=== PATIENT | female | born 1970 | race Caucasian/White ===

== ENCOUNTER → 2016-08-08 | Outpatient (CLI) | payer OTHER ==
--- NOTE | 2016-08-09 01:39 | REP ---
Clinical: Acute on chronic pain. Technique: AP, lateral, bilateral oblique, and sunrise views of the right knee. Findings: Mild tricompartmental osteoarthritic degenerative changes include subtle spurring along the femoral condyles and tibial plateau as well as increase sclerosis to the tibial surface. Lateral and sunrise views demonstrate small osteophytes forming along the patellar margin. No evidence for acute or healed fracture. No effusion. Impression: Mild tricompartmental osteoarthritic degenerative changes. Signed by Morgan Mario MD 08/09/2016 01:30 A
== END ==
LOC: M WUC 12:26
PROVIDERS: ATTEND Internal Medicine Rheumatology
DX: M13.861 Other specified arthritis, right knee (principal)

== ENCOUNTER 2016-08-09 21:31 | Emergency (ER) | payer OTHER ==
[2016-08-09] MEDS ORDERED: ADACEL/BOOSTRIX VACCINE (DIPHTH/PERTUSS/ACELL/TETANUS)0.5ML SYR (90715) As Ordered ONE (22:34)
[2016-08-09] MEDS ORDERED: AUGMENTIN 875 MG TAB As Ordered ONE (22:34)
--- NOTE | 2016-08-09 23:18 | EDDOCDS ---
Nurse's Notes [facility] Name: Karla Moreau Age: 46 yrs Sex: Female : 1970 Arrival Date: 08/09/2016 Time: 21:31 Bed Triage 3 Private MD: Elyse Gaines Diagnosis: Bitten by dog-right cheek Presentation: 08/09 21:34 Presenting complaint: Patient states: "My dog bit me in the face". pt reports all of mb9 his shots are up to date. Adult Sepsis Screening: The patient does not have new or worsening altered mentation. Patient's respiratory rate is less than 22. Systolic blood pressure is greater than 100. Patient has a qSOFA score of 0- Negative Sepsis Screen. Suicide/Homicide risk assessment- the patient denies having any suicidal and/or homicidal ideations and does not present with any other emotional, behavioral or mental health complaints. Status: Patient is not a quick service technician or dependent. Transition of care: patient was not received from another setting of care. 21:34 Acuity: TASHA Level 4 mb9 21:34 Method Of Arrival: Walkin/Carried/Asstd mb9 Triage Assessment: 21:39 Bite Description: Bite sustained to right cheek is superficial, from animal, was mb9 sustained 30-60 minutes ago. by a dog, Animal Information: Vaccine status: is current. General: Appears in no apparent distress, Behavior is appropriate for age, cooperative. Pain: Location: face Pain currently is 4 out of 10 on a pain scale. HIV screening NA for this visit Offered previously. Injury Description: Laceration sustained to right lower eyelid is clean, superficial, 0.5 to 2.5 cm long, was sustained 30-60 minutes ago. is bleeding a small amount Puncture sustained to right lower eyelid was sustained 30-60 minutes ago. 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 meloxicam oral Unknown oral 1 tab once daily 2. Allopurinol 200 mg Oral once daily 3. levothyroxine 25 mcg Oral tab 1 tab once daily - PMHx: PCOS; Gout; Hypothyroidism; - PSHx: none; - Immunization history:: Last tetanus immunization: < 10 years ago. - Family history: Not pertinent. - Social history: Smoking status: Patient uses tobacco products, heavy tobacco smoker. No barriers to communication noted, The patient speaks fluent Moroccan. - : The pt / caregiver states he / she is not on anticoagulants. Home medication list is obtained from the patient. - Exposure Risk Screening:: None identified. Screenin:13 Screening information is obtained from the patient. Fall risk: No risks identified. lf1 Assistance ADL's: requires no assistance with activities of daily living. Abuse/DV Screen: The patient / caregiver reports he/she is: not in a situation that causes fear, pain or injury. Nutritional screening: No deficits noted. Advance Directives: Currently, there is. home support is adequate. Assessment: 22:45 General: Appears in no apparent distress, Behavior is appropriate for age, cooperative. mb9 Injury Description: Laceration sustained to right lower eyelid is superficial, 0.5 to 2.5 cm long, Puncture sustained to right lower eyelid. 23:13 General: Appears in no apparent distress, comfortable, Behavior is cooperative. Pain: lf1 Denies pain. Neurological: Level of Consciousness is awake, alert, Oriented to person, place, time. EENT: No deficits noted. Respiratory: Respiratory effort is even, unlabored. : No deficits noted. Derm: Skin Superficial laceration to right lower eyelid / cheek area no active bleeding noted. Vital Signs: 21:32 BP 156 / 118; Pulse 83; Resp 18 S; Temp 97.1(O); Pulse Ox 100% on R/A; Weight 108.86 kg dd6 (R); Height 5 ft. 7 in. (170.18 cm) (R); 22:31 BP 175 / 98; Pulse 82; Resp 18; Temp 99.0(TE); Pulse Ox 97% on R/A; Pain 0/10; mdr 21:32 Body Mass Index 37.59 (108.86 kg, 170.18 cm) dd6 Vitals: 21:32 Log In Time: August 09, 2016 at 21:30. dd6 ED Course: 21:32 Patient visited by Jt Selby PCA. dd6 21:32 Elyse Gaines is Private Physician. dd6 21:32 Patient moved to Waiting dd6 21:33 Patient moved to Pre RCE dd6 21:36 Triage Initiated mb9 21:46 Patient moved to Triage 1 mdr 22:15 Shaggy Daniels [facility]-C [facility] cc10 22:15 Godwin Camacho MD is Attending Physician. cc10 22:15 Patient visited by Shaggy Daniels PA-C. cc10 22:15 Patient visited by Shaggy Daniels PA-C. cc10 22:21 Elyse Gaines is Referral Physician. cc10 22:33 [facility] Payment Agreement was scanned into [email or web address] and attached to record. gb 22:34 Patient visited by Rubens Heath PCA. mdr 22:52 Patient moved to Triage 3 ko2 23:13 The patient / caregiver is instructed regarding the plan of care and ED course. lf1 23:13 No IV's were initiated during this patient's visit. Assisted Provider with wound care. lf1 Administered Medications: 22:44 Drug: Tetanus- Diptheria-Acellular Pertussis 0.5 ml [diphth,pertussis(acel),tetanus 2.5 mb9 Lf unit-8 mcg-5 Lf/0.5mL IM syringe (0.5 mL)] {Restaurant Manager: [employer]. Exp: 08/27/2018. Lot #: [id number]. } Route: IM; Site: right deltoid; 23:17 Follow up: Response: No Adverse Reaction lf1 22:45 Drug: Amoxicillin-Clavulanate 1 tabs [amoxicillin 875 mg-potassium clavulanate 125 mg mb9 tablet (1 tabs)] Route: PO; Order Results: There are currently no results for this order. Outcome: 22:21 Discharge ordered by Provider. cc10 23:13 Discharge Assessment: Patient awake, alert and oriented x 3. No cognitive and/or lf1 functional deficits noted. Patient verbalized understanding of disposition instructions. Patient awake and alert. Oriented to person, place and time. Patient verbalized understanding of disposition instructions. Patient has no functional deficits. patient administered narcotics - no. The following High Risk Discharge criteria are identified: None. Discharged to home ambulatory. Condition: improved. Discharge instructions given to patient, Instructed on discharge instructions, follow up and referral plans. medication usage, Demonstrated understanding of instructions, medications, Pt was receptive of discharge instructions/ teaching. Prescriptions given X 1. No special radiology studies were completed. Property :Personal belongings accompany Pt. 23:16 Patient left the ED. lf1 Signatures: Cary Garcia, Reg Reg gb Roxanne Brasher,RN RN lf1 Jt Selby, SLIP MIXER SLIP MIXER dd6 Shaggy Daniels, PA-C PA-C cc10 Aundrea Vazquez RN RN ko2 Kashif GómezRN RN mb9 Rubens Heath, SLIP MIXER SLIP MIXER mdr MTDD
--- NOTE | 2016-08-09 23:18 | EDDOCDS ---
Physician Documentation [facility] Name: Karla Moreau Age: 46 yrs Sex: Female : 1970 Arrival Date: 08/09/2016 Time: 21:31 Bed Triage 3 Private MD: Elyse Gaines Disposition: 08/09/16 22:21 Discharged to Home/Self Care. Impression: Bitten by dog - right cheek. - Condition is Stable. - Discharge Instructions: Animal Bite. - Prescriptions for Augmentin 875- 125 mg Oral Tablet - take 1 tablet by ORAL route every 12 hours for 10 days; 20 tablet. - Medication Reconciliation, Local Pharmacy Hours form. - Follow up: Elyse Gaines; When: Call to arrange an appointment; Reason: Wound/Symptom Recheck, Recheck today's complaints, Worsening of conditions, Continuance of care. - Problem is new. - Symptoms are unchanged. Historical: - Allergies: no known allergies; - Home Meds: 1. meloxicam oral Unknown oral 1 tab once daily 2. Allopurinol 200 mg Oral once daily 3. levothyroxine 25 mcg Oral tab 1 tab once daily - PMHx: PCOS; Gout; Hypothyroidism; - PSHx: none; - Immunization history:: Last tetanus immunization: < 10 years ago. - Family history: Not pertinent. - Social history: Smoking status: Patient uses tobacco products, heavy tobacco smoker. No barriers to communication noted, The patient speaks fluent Portuguese. - : The pt / caregiver states he / she is not on anticoagulants. Home medication list is obtained from the patient. - Exposure Risk Screening:: None identified. 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 7 in. (170.18 cm) (R); 22:31 BP 175 / 98; Pulse 82; Resp 18; Temp 99.0(TE); Pulse Ox 97% on R/A; Pain 0/10; mdr 21:32 Body Mass Index 37.59 (108.86 kg, 170.18 cm) dd6 MDM: 22:20 Wound Care ordered. cc10 22:20 Tetanus- Diptheria-Acellular Pertussis 0.5 ml IM once; Routine booster 10-64yrs, >64 cc10 with child contact [employer] ordered. 22:20 Amoxicillin-Clavulanate 875 mg 1 tabs PO once ordered. cc10 22:26 Financial registration complete. 22:33 [facility] Payment Agreement was scanned into [employer] and attached to record. gb Administered Medications: 22:44 Drug: Tetanus- Diptheria-Acellular Pertussis 0.5 ml [diphth,pertussis(acel),tetanus 2.5 mb9 Lf unit-8 mcg-5 Lf/0.5mL IM syringe (0.5 mL)] {Radiographer Angiogram: [employer] Exp: 08/27/2018. Lot #: [id number]. } Route: IM; Site: right deltoid; 23:17 Follow up: Response: No Adverse Reaction lf1 22:45 Drug: Amoxicillin-Clavulanate 1 tabs [amoxicillin 875 mg-potassium clavulanate 125 mg mb9 tablet (1 tabs)] Route: PO; Signatures: Cary Garcia, Reg Reg gb Roxanne BrasherRN RN lf1 Shaggy Daniels PA-C PAMel cc10 Kashif Gómez,RN RN mb9 The chart was reviewed and I authenticate all verbal orders and agree with the evaluation and treatment provided.Attachments: 22:33 [facility] Payment Agreement gb MTDD
--- NOTE | 2016-08-12 00:17 | EDDOCDS ---
Physician Documentation [facility] Name: Karla Moreau Age: 46 yrs Sex: Female : 1970 Arrival Date: 08/09/2016 Time: 21:31 Bed Triage 3 Private MD: Elyse Gaines Disposition: 08/09/16 22:21 Discharged to Home/Self Care. Impression: Bitten by dog - right cheek. - Condition is Stable. - Discharge Instructions: Animal Bite. - Prescriptions for Augmentin 875- 125 mg Oral Tablet - take 1 tablet by ORAL route every 12 hours for 10 days; 20 tablet. - Medication Reconciliation, Local Pharmacy Hours form. - Follow up: Elyse Gaines; When: Call to arrange an appointment; Reason: Wound/Symptom Recheck, Recheck today's complaints, Worsening of conditions, Continuance of care. - Problem is new. - Symptoms are unchanged. Historical: - Allergies: no known allergies; - Home Meds: 1. meloxicam oral Unknown oral 1 tab once daily 2. Allopurinol 200 mg Oral once daily 3. levothyroxine 25 mcg Oral tab 1 tab once daily - PMHx: PCOS; Gout; Hypothyroidism; - PSHx: none; - Immunization history:: Last tetanus immunization: < 10 years ago. - Family history: Not pertinent. - Social history: Smoking status: Patient uses tobacco products, heavy tobacco smoker. No barriers to communication noted, The patient speaks fluent Libyan. - : The pt / caregiver states he / she is not on anticoagulants. Home medication list is obtained from the patient. - Exposure Risk Screening:: None identified. 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 7 in. (170.18 cm) (R); 22:31 BP 175 / 98; Pulse 82; Resp 18; Temp 99.0(TE); Pulse Ox 97% on R/A; Pain 0/10; mdr 21:32 Body Mass Index 37.59 (108.86 kg, 170.18 cm) dd6 MDM: 22:20 Wound Care ordered. cc10 22:20 Tetanus- Diptheria-Acellular Pertussis 0.5 ml IM once; Routine booster 10-64yrs, >64 cc10 with child contact [employer] ordered. 22:20 Amoxicillin-Clavulanate 875 mg 1 tabs PO once ordered. cc10 22:26 Financial registration complete. 22:33 [facility] Payment Agreement was scanned into [employer] and attached to record. gb 08/10 02:34 T-Sheet-- Draft Copy was scanned into [employer] and attached to record. 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 Exp: 08/27/2018. Lot #: [id number]. } Route: IM; Site: right deltoid; 23:17 Follow up: Response: No Adverse Reaction lf1 22:45 Drug: Amoxicillin-Clavulanate 1 tabs [amoxicillin 875 mg-potassium clavulanate 125 mg mb9 tablet (1 tabs)] Route: PO; 23:17 Follow up: Response: No Adverse Reaction lf1 Signatures: Cary Garcia, Reg Reg gb Roxanne Brasher RN RN lf1 Shaggy Daniels, PA-C PA-C cc10 Kashif Gómez RN RN mb9 Gayatri Goodwin, Reg Reg hs2 The chart was reviewed and I authenticate all verbal orders and agree with the evaluation and treatment provided.Attachments: 22:33 [facility] Payment Agreement gb 08/10 02:34 T-Sheet-- Draft Copy hs2 Chart Complete MTDD
--- NOTE | 2016-08-12 00:17 | EDDOCDS ---
Nurse's Notes [facility] Name: Karla Moreau Age: 46 yrs Sex: Female : 1970 Arrival Date: 08/09/2016 Time: 21:31 Bed Triage 3 Private MD: Elyse Gaines Diagnosis: Bitten by dog-right cheek Presentation: 08/09 21:34 Presenting complaint: Patient states: "My dog bit me in the face". pt reports all of mb9 his shots are up to date. Adult Sepsis Screening: The patient does not have new or worsening altered mentation. Patient's respiratory rate is less than 22. Systolic blood pressure is greater than 100. Patient has a qSOFA score of 0- Negative Sepsis Screen. Suicide/Homicide risk assessment- the patient denies having any suicidal and/or homicidal ideations and does not present with any other emotional, behavioral or mental health complaints. Status: Patient is not a supervisor home restoration service or dependent. Transition of care: patient was not received from another setting of care. 21:34 Acuity: TASHA Level 4 mb9 21:34 Method Of Arrival: Walkin/Carried/Asstd mb9 Triage Assessment: 21:39 Bite Description: Bite sustained to right cheek is superficial, from animal, was mb9 sustained 30-60 minutes ago. by a dog, Animal Information: Vaccine status: is current. General: Appears in no apparent distress, Behavior is appropriate for age, cooperative. Pain: Location: face Pain currently is 4 out of 10 on a pain scale. HIV screening NA for this visit Offered previously. Injury Description: Laceration sustained to right lower eyelid is clean, superficial, 0.5 to 2.5 cm long, was sustained 30-60 minutes ago. is bleeding a small amount Puncture sustained to right lower eyelid was sustained 30-60 minutes ago. 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 meloxicam oral Unknown oral 1 tab once daily 2. Allopurinol 200 mg Oral once daily 3. levothyroxine 25 mcg Oral tab 1 tab once daily - PMHx: PCOS; Gout; Hypothyroidism; - PSHx: none; - Immunization history:: Last tetanus immunization: < 10 years ago. - Family history: Not pertinent. - Social history: Smoking status: Patient uses tobacco products, heavy tobacco smoker. No barriers to communication noted, The patient speaks fluent Syrian. - : The pt / caregiver states he / she is not on anticoagulants. Home medication list is obtained from the patient. - Exposure Risk Screening:: None identified. Screenin:13 Screening information is obtained from the patient. Fall risk: No risks identified. lf1 Assistance ADL's: requires no assistance with activities of daily living. Abuse/DV Screen: The patient / caregiver reports he/she is: not in a situation that causes fear, pain or injury. Nutritional screening: No deficits noted. Advance Directives: Currently, there is. home support is adequate. Assessment: 22:45 General: Appears in no apparent distress, Behavior is appropriate for age, cooperative. mb9 Injury Description: Laceration sustained to right lower eyelid is superficial, 0.5 to 2.5 cm long, Puncture sustained to right lower eyelid. 23:13 General: Appears in no apparent distress, comfortable, Behavior is cooperative. Pain: lf1 Denies pain. Neurological: Level of Consciousness is awake, alert, Oriented to person, place, time. EENT: No deficits noted. Respiratory: Respiratory effort is even, unlabored. : No deficits noted. Derm: Skin Superficial laceration to right lower eyelid / cheek area no active bleeding noted. Vital Signs: 21:32 BP 156 / 118; Pulse 83; Resp 18 S; Temp 97.1(O); Pulse Ox 100% on R/A; Weight 108.86 kg dd6 (R); Height 5 ft. 7 in. (170.18 cm) (R); 22:31 BP 175 / 98; Pulse 82; Resp 18; Temp 99.0(TE); Pulse Ox 97% on R/A; Pain 0/10; mdr 21:32 Body Mass Index 37.59 (108.86 kg, 170.18 cm) dd6 Vitals: 21:32 Log In Time: August 09, 2016 at 21:30. dd6 ED Course: 21:32 Patient visited by Jt Selby PCA. dd6 21:32 Elyse Gaines is Private Physician. dd6 21:32 Patient moved to Waiting dd6 21:33 Patient moved to Pre RCE dd6 21:36 Triage Initiated mb9 21:46 Patient moved to Triage 1 mdr 22:15 Shaggy Daniels PA-C [facility]. cc10 22:15 Godwin Camacho MD is Attending Physician. cc10 22:15 Patient visited by Shaggy Daniels PA-C. cc10 22:15 Patient visited by Shaggy Daniels PA-C. cc10 22:21 Elyse Gaines is Referral Physician. cc10 22:33 [facility] Payment Agreement was scanned into [employer] and attached to record. gb 22:34 Patient visited by Rubens Heath PCA. mdr 22:52 Patient moved to Triage 3 ko2 23:13 The patient / caregiver is instructed regarding the plan of care and ED course. lf1 23:13 No IV's were initiated during this patient's visit. Assisted Provider with wound care. lf1 08/10 02:34 T-Sheet-- Draft Copy was scanned into [employer] and attached to record. hs2 Administered Medications: 08/09 22:44 Drug: Tetanus- Diptheria-Acellular Pertussis 0.5 ml [diphth,pertussis(acel),tetanus 2.5 mb9 Lf unit-8 mcg-5 Lf/0.5mL IM syringe (0.5 mL)] {Hospital Cleaning Specialist: [employer]. Exp: 08/27/2018. Lot #: [id number]. } Route: IM; Site: right deltoid; 23:17 Follow up: Response: No Adverse Reaction lf1 22:45 Drug: Amoxicillin-Clavulanate 1 tabs [amoxicillin 875 mg-potassium clavulanate 125 mg mb9 tablet (1 tabs)] Route: PO; 23:17 Follow up: Response: No Adverse Reaction lf1 Order Results: There are currently no results for this order. Outcome: 22:21 Discharge ordered by Provider. cc10 23:13 Discharge Assessment: Patient awake, alert and oriented x 3. No cognitive and/or lf1 functional deficits noted. Patient verbalized understanding of disposition instructions. Patient awake and alert. Oriented to person, place and time. Patient verbalized understanding of disposition instructions. Patient has no functional deficits. patient administered narcotics - no. The following High Risk Discharge criteria are identified: None. Discharged to home ambulatory. Condition: improved. Discharge instructions given to patient, Instructed on discharge instructions, follow up and referral plans. medication usage, Demonstrated understanding of instructions, medications, Pt was receptive of discharge instructions/ teaching. Prescriptions given X 1. No special radiology studies were completed. Property :Personal belongings accompany Pt. 23:16 Patient left the ED. lf1 Signatures: Cary Garcia, Reg Reg gb Roxanne Brasher,RN RN lf1 Jt Selby, CLEANER CARPET AND UPHOLSTERY CLEANER CARPET AND UPHOLSTERY dd6 Shaggy Daniels, PASienaC PA-C cc10 Aundrea VazquezRN RN ko2 Kashif GómezRN RN mb9 Rubens Heath, CLEANER CARPET AND UPHOLSTERY CLEANER CARPET AND UPHOLSTERY mdr Gayatri Goodwin, Reg Reg hs2 Chart Complete MTDD
--- NOTE | 2016-08-12 00:17 | EDDOCDS ---
Physician Documentation [facility] Name: Karla Moreau Age: 46 yrs Sex: Female : 1970 Arrival Date: 08/09/2016 Time: 21:31 Bed Triage 3 Private MD: Elyse Gaines Disposition: 08/09/16 22:21 Discharged to Home/Self Care. Impression: Bitten by dog - right cheek. - Condition is Stable. - Discharge Instructions: Animal Bite. - Prescriptions for Augmentin 875- 125 mg Oral Tablet - take 1 tablet by ORAL route every 12 hours for 10 days; 20 tablet. - Medication Reconciliation, Local Pharmacy Hours form. - Follow up: Elyse Gaines; When: Call to arrange an appointment; Reason: Wound/Symptom Recheck, Recheck today's complaints, Worsening of conditions, Continuance of care. - Problem is new. - Symptoms are unchanged. Historical: - Allergies: no known allergies; - Home Meds: 1. meloxicam oral Unknown oral 1 tab once daily 2. Allopurinol 200 mg Oral once daily 3. levothyroxine 25 mcg Oral tab 1 tab once daily - PMHx: PCOS; Gout; Hypothyroidism; - PSHx: none; - Immunization history:: Last tetanus immunization: < 10 years ago. - Family history: Not pertinent. - Social history: Smoking status: Patient uses tobacco products, heavy tobacco smoker. No barriers to communication noted, The patient speaks fluent Filipino. - : The pt / caregiver states he / she is not on anticoagulants. Home medication list is obtained from the patient. - Exposure Risk Screening:: None identified. 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 7 in. (170.18 cm) (R); 22:31 BP 175 / 98; Pulse 82; Resp 18; Temp 99.0(TE); Pulse Ox 97% on R/A; Pain 0/10; mdr 21:32 Body Mass Index 37.59 (108.86 kg, 170.18 cm) dd6 MDM: 22:20 Wound Care ordered. cc10 22:20 Tetanus- Diptheria-Acellular Pertussis 0.5 ml IM once; Routine booster 10-64yrs, >64 cc10 with child contact [employer] ordered. 22:20 Amoxicillin-Clavulanate 875 mg 1 tabs PO once ordered. cc10 22:26 Financial registration complete. 22:33 [facility] Payment Agreement was scanned into [employer] and attached to record. gb 08/10 02:34 T-Sheet-- Draft Copy was scanned into [employer] and attached to record. hs2 Administered Medications: 08/09 22:44 Drug: Tetanus- Diptheria-Acellular Pertussis 0.5 ml [diphth,pertussis(acel),tetanus 2.5 mb9 Lf unit-8 mcg-5 Lf/0.5mL IM syringe (0.5 mL)] {Bareback Rider: [employer]. Exp: 08/27/2018. Lot #: [id number]. } Route: IM; Site: right deltoid; 23:17 Follow up: Response: No Adverse Reaction lf1 22:45 Drug: Amoxicillin-Clavulanate 1 tabs [amoxicillin 875 mg-potassium clavulanate 125 mg mb9 tablet (1 tabs)] Route: PO; 23:17 Follow up: Response: No Adverse Reaction lf1 Signatures: Cary Garcia, Reg Reg gb Roxanne Brasher RN RN lf1 Shaggy Daniels, PA-C PA-C cc10 Kashif Gómez RN RN mb9 Gayatri Goodwin, Reg Reg hs2 The chart was reviewed and I authenticate all verbal orders and agree with the evaluation and treatment provided.Attachments: 22:33 [facility] Payment Agreement gb 08/10 02:34 T-Sheet-- Draft Copy hs2 Chart Complete MTDD
== END 2016-08-09 23:16 | disposition home or self-care (01) ==
LOC: M ED 21:31
DX: S01.451A Open bite of right cheek and temporomandibular area, initial encounter (principal); W54.0XXA Bitten by dog, initial encounter; Y92.019 Unspecified place in single-family (private) house as the place of occurrence of the external cause; Y93.K9 Activity, other involving animal care; Y99.8 Other external cause status; E28.2 Polycystic ovarian syndrome; M10.9 Gout, unspecified; E03.9 Hypothyroidism, unspecified; F17.210 Nicotine dependence, cigarettes, uncomplicated; Z79.899 Other long term (current) drug therapy

== ENCOUNTER → 2016-10-18 | Outpatient (REF) | payer OTHER | LOC: M LAB REF 17:09 | PROVIDERS: ATTEND Physician Assistant | DX: N81.4 Uterovaginal prolapse, unspecified (principal) ==

== ENCOUNTER → 2016-11-01 | Outpatient (CLI) | payer OTHER ==
[2016-11-01 18:08] LABS: MEAN CORPUSCULAR HEMOGLOBIN 29.1 pg (27.0-33.0); MEAN CORPUSCULAR HGB CONC 32.5 g/dl (32.0-36.5); MEAN CORPUSCULAR VOLUME 89.6 fl (80.0-96.0); RED CELL DISTRIBUTION WIDTH 13.1 % (11.5-14.5); WHITE BLOOD COUNT 7.3 K/mm3 (4.0-10.0)
[2016-11-01 18:16] LABS: ALBUMIN 4.1 GM/DL (3.2-5.2); ALBUMIN/GLOBULIN RATIO 1.24 (1.00-1.93); ALKALINE PHOSPHATASE 63 U/L (45-117); ALT/SGPT 31 U/L (12-78); ANION GAP 7 MEQ/L (8-16); AST/SGOT 20 U/L (15-37); BILIRUBIN,TOTAL 0.6 MG/DL (0.2-1.0); BLOOD UREA NITROGEN 13 MG/DL (7-18); CALCIUM LEVEL 8.9 MG/DL (8.5-10.1); CARBON DIOXIDE LEVEL 28 MEQ/L (21-32); CHLORIDE LEVEL 103 MEQ/L (98-107); CREATININE FOR GFR 0.86 MG/DL (0.55-1.02); GLOMERULAR FILTRATION RATE > 60.0 (>58); GLUCOSE, FASTING 77 MG/DL (70-105); PERCENT SATURATION 21.9 % (13.2-37.4); POTASSIUM SERUM 4.2 MEQ/L (3.5-5.1); SODIUM LEVEL 138 MEQ/L (136-145); TOTAL IRON BINDING CAPACITY 356 UG/DL (250-450); TOTAL PROTEIN 7.4 GM/DL (6.4-8.2); URIC ACID 6.7 MG/DL (2.6-6.0)
[2016-11-04 00:06] LABS: Lyme Disease IgG/IgM Antibodie <0.91 ISR (0.00-0.90); Lyme Disease IgM Ab Quantitati <0.80 index (0.00-0.79)
== END ==
LOC: M WUC 15:05
PROVIDERS: ATTEND Family Medicine
DX: D64.9 Anemia, unspecified (principal); R53.83 Other fatigue; M19.90 Unspecified osteoarthritis, unspecified site

== ENCOUNTER → 2017-10-09 | Outpatient (CLI) | payer OTHER | LOC: M RAD 12:29 | DX: N63.21 Unspecified lump in the left breast, upper outer quadrant (principal) | CPT/HCPCS: 77066 ==

== ENCOUNTER → 2018-03-24 | Outpatient (REF) | payer OTHER ==
[2018-03-24 22:18] LABS: FREE T4 1.19 NG/DL (0.76-1.46)
== END ==
LOC: M LAB REF 10:19
DX: E03.9 Hypothyroidism, unspecified (principal)

== ENCOUNTER → 2019-03-08 | Outpatient (CLI) | payer OTHER | LOC: M WUC 09:29 | PROVIDERS: ATTEND Physician Assistant | DX: M10.9 Gout, unspecified (principal) ==

== ENCOUNTER → 2020-01-09 | Outpatient (CLI) | payer BC, OTHER ==
--- NOTE | 2020-01-09 16:34 | REP ---
THORACIC SPINE: Three AP and lateral views of the thoracic spine performed. There is no compression fracture. There is mild accentuation of thoracic kyphosis. There is mild diffuse spurring and mild diffuse disc space narrowing and subchondral sclerosis. The posterior elements are intact. IMPRESSION: Mild diffuse degenerative changes. No fracture or dislocation. Electronically Signed by Santhosh Prajapati MD 01/10/2020 01:15 P
== END ==
LOC: M WUC 14:29
PROVIDERS: ATTEND Physician Assistant
DX: S29.012A Strain of muscle and tendon of back wall of thorax, initial encounter (principal); W18.30XA Fall on same level, unspecified, initial encounter; Y92.9 Unspecified place or not applicable

== ENCOUNTER → 2021-10-04 | Outpatient (CLI) | payer BC | LOC: M WUC 13:29 | PROVIDERS: ATTEND Physician Assistant | DX: M25.562 Pain in left knee (principal) ==

== ENCOUNTER → 2022-12-28 | Outpatient (CLI) | payer BC | LOC: M WUC 15:41 | PROVIDERS: ATTEND Nurse Practitioner Family | DX: M25.572 Pain in left ankle and joints of left foot (principal) ==

== ENCOUNTER → 2023-03-27 | Outpatient (CLI) | payer BC ==
[2023-03-27 10:29] LABS: HEMATOCRIT 41.6 % (36.0-47.0); HEMOGLOBIN 13.4 g/dl (12.0-15.5); MEAN CORPUSCULAR HEMOGLOBIN 29.3 pg (27.0-33.0); MEAN CORPUSCULAR HGB CONC 32.2 g/dl (32.0-36.5); MEAN CORPUSCULAR VOLUME 90.8 fl (80.0-96.0); PLATELET COUNT, AUTOMATED 191 10^3/uL (150-450); RED BLOOD COUNT 4.58 10^6/uL (4.00-5.40); WHITE BLOOD COUNT 5.7 10^3/uL (4.0-10.0)
[2023-03-27 12:58] LABS: THYROID STIMULATING HORMONE 5.911 uIU/ML (0.55-4.78)
[2023-03-27 13:26] LABS: ALBUMIN 3.5 G/DL (3.2-5.2); ALKALINE PHOSPHATASE 60 U/L (46-116); ALT/SGPT 27 U/L (7.0-40); AST/SGOT 16 U/L (<34); BILIRUBIN,TOTAL 0.5 MG/DL (0.3-1.2); BLOOD UREA NITROGEN 17 MG/DL (9-23); CALCIUM LEVEL 8.2 MG/DL (8.5-10.1); CARBON DIOXIDE LEVEL 24 MMOL/L (20-31); CHLORIDE LEVEL 109 MMOL/L (98-107); CHOLESTEROL LEVEL 223 MG/DL (<200); CREATININE FOR GFR 0.85 MG/DL (0.55-1.30); GLOMERULAR FILTRATION RATE > 60.0 (>51); GLUCOSE, FASTING 96 MG/DL (60-100); HDL CHOLESTEROL 43.7 MG/DL (>40); LDL CHOLESTEROL 133.5 MG/DL (<100); NON-HDL-C 179.3 MG/DL; POTASSIUM SERUM 4.5 MMOL/L (3.5-5.1); SODIUM LEVEL 140 MMOL/L (136-145); TOTAL PROTEIN 6.7 G/DL (5.7-8.2); TRIGLYCERIDES LEVEL 229 MG/DL (<150)
== END ==
LOC: M WUC 08:37
PROVIDERS: ATTEND Physician Assistant
DX: E03.9 Hypothyroidism, unspecified (principal); E66.9 Obesity, unspecified; Z91.89 Other specified personal risk factors, not elsewhere classified; Z87.891 Personal history of nicotine dependence

== ENCOUNTER → 2023-12-04 | Outpatient (CLI) | payer BC ==
[~2023-12-04] MED LIST: GASTROGRAFIN SOLUTION 30ML As Ordered ONE; ISOVUE-370 76% 100ML VIAL As Ordered ONE
== END ==
LOC: M RAD 13:16
PROVIDERS: ATTEND Physician Assistant
DX: R10.9 Unspecified abdominal pain (principal); K42.9 Umbilical hernia without obstruction or gangrene
CPT/HCPCS: 74177; Q9963; Q9967

== ENCOUNTER → 2024-01-30 | Outpatient (REF) | payer BC ==
[2024-01-30 15:05] LABS: FREE T4 1.14 NG/DL (0.89-1.76); THYROID STIMULATING HORMONE 3.716 uIU/ML (0.55-4.78)
== END ==
LOC: M LABWUC 14:06
PROVIDERS: ATTEND Internal Medicine
DX: E03.9 Hypothyroidism, unspecified (principal)

== ENCOUNTER → 2024-07-16 | Outpatient (CLI) | payer BC ==
[2024-07-16 16:28] LABS: ALBUMIN 3.9 G/DL (3.2-5.2); BILIRUBIN,TOTAL 0.6 MG/DL (0.3-1.2); CALCIUM LEVEL 9.8 MG/DL (8.5-10.1); CREATININE FOR GFR 1.09 MG/DL (0.55-1.30); GLOMERULAR FILTRATION RATE 56.1 (>51); POTASSIUM SERUM 4.8 MMOL/L (3.5-5.1); TOTAL PROTEIN 8.2 G/DL (5.7-8.2)
== END ==
LOC: M WUC 12:09
PROVIDERS: ATTEND Nurse Practitioner Family
DX: M17.12 Unilateral primary osteoarthritis, left knee (principal); M25.462 Effusion, left knee

== ENCOUNTER 2024-11-18 21:51 | Emergency (ER) | payer BC ==
[~2024-11-18] VITALS: Ht 170.2 cm; Wt 115.0 kg
[2024-11-19 04:26] LABS: KETONE, URINE AUTO RFX NEGATIVE (NEGATIVE); LEUKOCYTE ESTERASE UR AUTO RFX NEGATIVE (NEGATIVE); NITRITE, URINE AUTO RFX NEGATIVE (NEGATIVE); RBC, URINE AUTO RFX 0 /HPF (0-3); SQUAM EPITHELIAL CELL UR AURFX 1 /HPF (0-6); WBC, URINE AUTO RFX 1 /HPF (0-3)
[2024-11-19 05:12] LABS: BASO % 0.3 % (0.0-1.0); EOS # 0.1 10^3/uL (0.0-0.5); HEMATOCRIT 39.3 % (36.0-47.0); HEMOGLOBIN 12.9 g/dl (12.0-15.5); LYMPH # 1.3 10^3/uL (1.5-5.0); LYMPH % 19.7 % (24.0-44.0); MEAN CORPUSCULAR HEMOGLOBIN 28.8 pg (27.0-33.0); MEAN CORPUSCULAR HGB CONC 32.8 g/dl (32.0-36.5); MEAN CORPUSCULAR VOLUME 87.7 fl (80.0-96.0); MONO # 0.7 10^3/uL (0.0-0.8); MONO % 10.9 % (2.0-8.0); NEUTROPHILS # 4.4 10^3/uL (1.5-8.5); NEUTROPHILS % 66.8 % (36.0-66.0); PLATELET COUNT, AUTOMATED 193 10^3/uL (150-450); RED BLOOD COUNT 4.48 10^6/uL (4.00-5.40); WHITE BLOOD COUNT 6.5 10^3/uL (4.0-10.0)
[2024-11-19 05:45] LABS: ALBUMIN 3.9 G/DL (3.2-5.2); BILIRUBIN,DIRECT 0.2 MG/DL (<0.4); BILIRUBIN,TOTAL 0.7 MG/DL (0.3-1.2); CALCIUM LEVEL 10.2 MG/DL (8.5-10.1); CREATININE FOR GFR 1.04 MG/DL (0.55-1.30); GLOMERULAR FILTRATION RATE 64.7 (>51); POTASSIUM SERUM 4.2 MMOL/L (3.5-5.1); TOTAL PROTEIN 7.5 G/DL (5.7-8.2)
[2024-11-19] MEDS: KETOROLAC 30 MG/ML 1ML VIAL IV ONE (05:59)
[2024-11-19 07:15] VITALS: TEMP 96.9
[2024-11-19] MEDS ORDERED: COLA100C5 PO (07:35)
[2024-11-19] MEDS ORDERED: IBUP-1022 PO (07:35)
[2024-11-19 07:46] VITALS: BP 141/73; O2SAT 96
[2024-11-19] MEDS: MAGNESIUM CITRATE 300ML BTL PO ONE (07:46)
== END 2024-11-19 07:54 | disposition home or self-care (01) ==
LOC: M ED 21:51
DX: K59.00 Constipation, unspecified (principal); N20.0 Calculus of kidney; J98.11 Atelectasis; Z79.1 Long term (current) use of non-steroidal anti-inflammatories (NSAID); Z79.899 Other long term (current) drug therapy
CPT/HCPCS: 74176; 80048; 80076; 81001; 83690; 85025; 96374; 99284; J1885

== ENCOUNTER → 2025-02-06 | Outpatient (REF) | payer BC ==
[~2025-02-06] MED LIST changes: +COLA100C5 PO; -GASTROGRAFIN SOLUTION 30ML As Ordered ONE; +IBUP-1022 PO; -ISOVUE-370 76% 100ML VIAL As Ordered ONE
== END ==
LOC: M LAB REF 17:12
PROVIDERS: ATTEND Internal Medicine
DX: N39.0 Urinary tract infection, site not specified (principal)

== ENCOUNTER → 2025-02-06 | Outpatient (REF) | payer BC ==
[2025-02-06 18:30] LABS: IRON (FE) 63.0 UG/DL (50-170); PERCENT SATURATION 19.7 % (13.2-45.0)
== END ==
LOC: M LAB REF 13:46
PROVIDERS: ATTEND Internal Medicine
DX: E61.1 Iron deficiency (principal); R10.13 Epigastric pain

== ENCOUNTER → 2025-02-07 | Outpatient (CLI) | payer BC | LOC: M RAD 06:34 | PROVIDERS: ATTEND Internal Medicine | DX: R10.11 Right upper quadrant pain (principal); R10.13 Epigastric pain ==